=== PATIENT | female | born 1945 | race Caucasian/White ===

== ENCOUNTER 2020-08-15 17:28 | Emergency (ER) | payer MEDICARE, OTHER, SELFPAY ==
[2020-08-15 17:28] VITALS: BP 141/90; PULSE 86; RESP 17; TEMP 36.1; O2SAT 99; BMI 22.6
--- NOTE | 2020-08-15 17:59 | ED.VIS.GEN ---
History of Present Illness Chief Complaint: Fall Detail of Chief Complaint: Left wrist pain Informant: Patient Onset: Today Current Severity: Mild Maximum Severity: Moderate Narrative: Patient present secondary left wrist pain from a fall. She was walking back to her car when she slipped on the ice and fell. She states she believes her left wrist got caught underneath her. She does have a history of breaking her left wrist. It was reduced and splinted but never did require surgery. Patient states that Dr. Limon talked about placing a pin in her wrist to help protect it if she were to fall again. She declined this because it healed well with just the splint and cast. Patient denies any other injury from her fall. - Past Medical History (1) Breast cancer Status: Chronic Past Medical History - Allergies and Home Meds Allergies/Adverse Reactions: Allergies Penicillins Allergy (Verified 08/15/20 17:30) Unknown Primary Care Physician: Js Limon MD [STAFF PHYSICIAN] - 5-7 Days Prior records reviewed: Yes Smoking Status: Never smoker Review of Systems General: Denies: Chills, Fever Eyes: Denies: Visual changes - bilaterally ENT: Denies: Bilateral ear pain Cardiovascular: Denies: Chest pain Respiratory: Denies: Dyspnea, Cough Gastrointestinal: Denies: Abdominal pain, Nausea, Vomiting, Diarrhea Musculoskeletal: Reports: Extremity Pain Skin: Denies: Rash Hematologic: Denies: Easy bruising, Easy bleeding Allergy: Denies: Uticaria Physical Exam Vital Signs/Narrative: Vital Signs Temp Pulse Resp BP Pulse Ox 08/15/20 17:28 96.9 F L 86 17 141/90 H 99 Inital Vital Signs reviewed: Yes General: Well nourished, Well developed Head: Normocephalic ENT: Moist mucous membranes Neck: Supple Cardiovascular: Regular rate, Regular rhythm Respiratory: No distress, CTA bilaterally Abdomen: Soft, Nontender Extremities: - - Tenderness palpation and mild edema to the left wrist. Patient is able to wiggle her fingers. No tenderness of the left elbow or shoulder. Skin: Normal color Neurological: Alert, Oriented x3 Psychological: Normal affect Diagnostic/Tx/Re-eval Impressions Wrist X-Ray 08/15/20 20:15 IMPRESSION: Anatomic alignment status post reduction. Electronically Signed: Daysi Heath MD at 20:47 EST Tel , Service support , 08/15/20 18:00 Wrist X-ray IMPRESSION: 1. Distal radial diaphyseal mildly under aerated fracture. 2. Separate interarticular corner fracture of the distal radius..st min 3 Views [RAD] Stat - Medical Decision Making Patient declined anything for pain. Three-view x-ray of the left wrist reveals distal radius fracture. There is a avulsion fracture off the distal ulna as well. There is approximate 30 degrees angulation per my interpretation. X-ray images were transmitted to orthopedic doctor on-call, Dr. Limon. Patient had expressed initial concern that she only wanted Dr. Limon to reduce her arm. I advised the patient that I felt that I was able to reduce it appropriately and she did ultimately agree. Patient was sedated with a total of 70 mg of propofol. She received good sedation. Left wrist was reduced with traction. AP Ortho-Glass splint was applied following reduction. Patient woke from propofol without any difficulties. Repeat x-rays revealed good reduction and alignment. Those x-rays were also reviewed with orthopedics. At this time patient only wishes for Tylenol for pain. She will be given a prescription for this which would be filled here at the hospital she does not have any at home. She will follow up with orthopedics. She will be given a sling. Procedures - Upper Extremity Splints Upper Extremity Splint: Orthoglass Splint Fabrication: Fabricated Location: Left Procedure(s): Patient was consented for procedural sedation. Patient received a total of 70 mg of propofol. Patient was on 6 L nasal cannula and on radiographer cardiac catheterization throughout procedure. She never had episodes of apnea or hypoxia. Left wrist was reduced with traction and placed in AP Ortho-Glass splint. Patient woke from sedation without difficulty. Following splint application she has good cap refill and can wiggle fingers. She has good cap refill and sensation distally. ED Disposition - Plan for ED Patient: Disposition: Home or Assisted Living Diagnosis: Left wrist fracture Instructions: ED Fracture, Wrist, General Prescriptions: Acetaminophen [Tylenol Extra Strength] 500 mg PO Q6H PRN PRN #12 tab PRN Reason: Pain Score 4-10 Prescription Printed Referrals: Js Limon MD [STAFF PHYSICIAN] - 5-7 Days
--- NOTE | 2020-08-15 18:00 | RAD_ITS ---
STUDY: X-RAY - LEFT WRIST REASON FOR EXAM: Female, 75 years old. Fall wrist pain evaluation for fracture TECHNIQUE: 3 view(s) of the wrist were obtained. COMPARISON: 21 June 2016 FINDINGS: There is a mildly comminuted distal radial diaphyseal fracture and a separate small corner fracture involving articular surface. There is mild dorsal angulation of the fracture fragment. Radial carpal joint is located. Carpal bones are intact. Soft tissues are normal with mild edema. RAD/Wrist min 3 Views IMPRESSION: 1. Distal radial diaphyseal mildly under aerated fracture. 2. Separate interarticular corner fracture of the distal radius.. Electronically Signed: Evangelina Hines MD at 18:45 EST Tel , Service support ,
[2020-08-15 20:00] VITALS: BP 129/88; BP 138/75; BP 142/88; PULSE 94; PULSE 95; PULSE 99; RESP 12; RESP 13; RESP 20; O2SAT 100; O2SAT 99
[2020-08-15 20:10] VITALS: BP 142/88; PULSE 94; RESP 20; O2SAT 100
--- NOTE | 2020-08-15 20:15 | RAD_ITS ---
STUDY: X-RAY - LEFT WRIST REASON FOR EXAM: Female, 75 years old. post reduction TECHNIQUE: 2 view(s) of the wrist were obtained. COMPARISON: None. FINDINGS: Patient has been casted in fiberglass. Acute fracture of the distal radial shaft is identified. There is no displacement or angulation. Bony structures are otherwise unremarkable. RAD/Wrist 2 Views IMPRESSION: Anatomic alignment status post reduction. Electronically Signed: Daysi Heath MD at 20:47 EST Tel , Service support ,
[2020-08-15 20:25] VITALS: BP 104/64; PULSE 86; RESP 21; O2SAT 100
[2020-08-15] MEDS: Propofol 200 MG/20 ML Vial IV BOLUS (20:39)
== END 2020-08-15 21:36 | disposition home or self-care (01) ==
PROVIDERS: Emergency Provider Emergency Medicine
DX: S52.502A Unspecified fracture of the lower end of left radius, initial encounter for closed fracture (principal); S52.602A Unspecified fracture of lower end of left ulna, initial encounter for closed fracture; W00.0XXA Fall on same level due to ice and snow, initial encounter; Y93.01 Activity, walking, marching and hiking; Y92.9 Unspecified place or not applicable; Z85.3 Personal history of malignant neoplasm of breast
CPT/HCPCS: 25605; 73100; 73110; 99284; J7030; A4216